=== PATIENT | female | born 1975 | race African-American/Black ===

== ENCOUNTER 2016-04-14 20:43 | Emergency (ER) | payer MEDICAID, OTHER ==
[~2016-04-14] VITALS: Ht 157.5 cm; Wt 124.7 kg
[~2016-04-14 20:43] MED LIST: COLACE100 MG ORAL; NKM; NORCO 5-325 TA1 EACH ORAL; PHENERGAN25 M1 ORAL; PROMETHAZI6.25 MG/2 PO; PROTONIX40 MG ORAL; TRAMADOL HCL50 MG ORAL; VICODIN 5-3001 EACH PO; ZANTAC150 MG ORAL; ZANTAC150 MG PO; ZOFRAN4 M3 ORAL; ZOFRAN4 MG ORAL; [UNRECOGNIZED DRUG - REMARK] PO
[2016-04-14 21:07] VITALS: BP 127/87
[2016-04-14] MEDS ORDERED: Morphine Sulfate 4mg/ml Inj IM ONE (21:45)
[2016-04-14] MEDS ORDERED: DiphenhydrAMINE 50mg/ml Inj IM ONE (21:45)
[2016-04-14 21:52] LABS: BASOPHILS % (AUTO) 0.7 % (0.0-2.0); EOSINOPHILS % (AUTO) 4.6 % (0.0-3.0); LYMPHOCYTES % (AUTO) 31.2 % (20.0-45.0); MEAN CORPUSCULAR HEMOGLOBIN 26.5 PG (27.0-31.0); MEAN CORPUSCULAR HGB CONC 31.7 G/DL (32.0-36.0); MEAN CORPUSCULAR VOLUME 84 FL (80-99); MEAN PLATELET VOLUME 6.4 FL (6.5-10.1); NEUTROPHILS % (AUTO) 58.5 % (45.0-75.0); PLATELET COUNT 332 K/UL (150-450); RED BLOOD COUNT 4.61 M/UL (4.20-5.40); RED CELL DISTRIBUTION WIDTH 14.7 % (11.6-14.8); WHITE BLOOD COUNT 6.9 K/UL (4.8-10.8)
[2016-04-14 22:06] LABS: ALANINE AMINOTRANSFERASE 17 U/L (3-33); ANION GAP 16 (5-15); ASPARTATE AMINO TRANSFERASE 17 U/L (5-40); CALCIUM 9.4 mg/dL (8.6-10.2); CARBON DIOXIDE 26 mEQ/L (20-30); CHLORIDE 97 mEQ/L (98-107); GLOMERULAR FILTRATION RATE > 60 mL/min (>60); HEMOLYSIS 3; LIPASE 21 U/L (< 60); POTASSIUM 3.9 mEQ/L (3.4-4.9); SODIUM 139 mEQ/L (135-145); TOTAL PROTEIN 8.2 g/dL (6.6-8.7)
[2016-04-14] MEDS ORDERED: ZOFRAN ODT4 MG ORAL (22:38)
[2016-04-14 22:44] VITALS: BP 127/87
--- NOTE | 2016-04-14 23:54 | Emergency Room Report ---
History of Present Illness General Chief Complaint: Abdominal Pain Source: Patient Present Illness HPI 40-year-old female presents ED complaining of abdominal pain. States symptoms started 2 days ago. Pain is lower, sharp, 10 out of 10, associated with vaginal bleeding. Patient has history of fibroids. Patient states she is scheduled for OB referral for possible hysterectomy. Patient states she's been here before for the same problem. Patient wants to make sure she doesn't need a blood transfusion. I believe this patient also goes under the name of ALVERTO WELLINGTON. Under this different name patient is also been here several times for similar presentation. No aggravating or relieving factors. Denies any other associated symptoms Allergies: Coded Allergies: ASPIRIN (Verified Allergy, Severe, Anaphylaxis, 07/02/12) KETOROLAC TROMETHAMINE (Verified Allergy, Severe, Anaphylaxis, 07/02/12) SHELLFISH DERIVED (Verified Allergy, Severe, Anaphylaxis, 07/02/12) IBUPROFEN (Verified Allergy, Unknown, 11/11/15) LIDOCAINE (Verified Allergy, Unknown, Itching, 10/30/13) Patient History Past Medical History: GERD Past Surgical History: none Pertinent Family History: none Social History: Denies: alcohol use, drug use, smoking Last Menstrual Period: Jan 2016 Now: No Immunizations: UTD Reviewed Nursing Documentation: PMH: Agreed, PSxH: Agreed Nursing Documentation-PMH Hx Cardiac Problems: No - fibroids Hx Cancer: No Hx Gastrointestinal Problems: Yes - ABD Pain Hx Neurological Problems: No Hx Dizziness: Yes Hx Headaches: Yes Review of Systems All Other Systems: negative except mentioned in HPI Physical Exam Vital Signs Date Time Temp Pulse Resp B/P Pulse Ox O2 Delivery O2 Flow Rate FiO2 04/14/16 20:52 98.8 92 16 127/67 98 Room Air Sp02 EP Interpretation: reviewed, normal General Appearance: obese Head: normocephalic Eyes: bilateral eye PERRL, bilateral eye normal inspection ENT: normal ENT inspection Neck: normal inspection Respiratory: chest non-tender, lungs clear, normal breath sounds, speaking full sentences Cardiovascular #1: regular rate, rhythm, no edema Gastrointestinal: normal bowel sounds, soft, non-distended, no guarding, no rebound, tenderness Rectal: deferred Genitourinary: no CVA tenderness Musculoskeletal: normal inspection Neurologic: alert, oriented x3, responsive, motor strength/tone normal, sensory intact, speech normal Psychiatric: normal inspection Skin: normal inspection Lymphatic: normal inspection Medical Decision Making Diagnostic Impression: Primary Impression: fibroid uterus Additional Impression: Drug-seeking behavior ER Course 40-year-old female presents to ED complaining of lower abdominal pain. States history of fibroids. Differential-anemia, fibroids, chronic pain, gastritis Patient placed on stretcher. After initial history and physical patient stated that she does not want an IV because she is a hard stick. agrees to labs and IM pain medications. Patient states she takes tramadol at home but would like Dilaudid here I stated that patient we will try morphine first Labs - hemoglobin/hematocrit stable, electrolytes okay On reassessment pain is improved. I'm concerned about drug seeking behavior given patient's pain requirements and patient been recently evaluated here under different name. patient also goes by ALVERTO WELLINGTON Patient is requesting pain medications to go home. I explained to the patient that her she has extensive narcotic prescriptions filled recently diagnosis - fibroid uterus, opioid dependence, drug-seeking behavior stable and discharged to home with Rx Zofran. f/u PMD. return to ED if symptoms recur/worsen Labs Test 04/14/16 21:40 White Blood Count 6.9 K/UL (4.8-10.8) Red Blood Count 4.61 M/UL (4.20-5.40) Hemoglobin 12.2 G/DL (12.0-16.0) Hematocrit 38.6 % (37.0-47.0) Mean Corpuscular Volume 84 FL (80-99) Mean Corpuscular Hemoglobin 26.5 PG (27.0-31.0) Mean Corpuscular Hemoglobin Concent 31.7 G/DL (32.0-36.0) Red Cell Distribution Width 14.7 % (11.6-14.8) Platelet Count 332 K/UL (150-450) Mean Platelet Volume 6.4 FL (6.5-10.1) Neutrophils (%) (Auto) 58.5 % (45.0-75.0) Lymphocytes (%) (Auto) 31.2 % (20.0-45.0) Monocytes (%) (Auto) 5.0 % (1.0-10.0) Eosinophils (%) (Auto) 4.6 % (0.0-3.0) Basophils (%) (Auto) 0.7 % (0.0-2.0) Sodium Level 139 mEQ/L (135-145) Potassium Level 3.9 mEQ/L (3.4-4.9) Chloride Level 97 mEQ/L (98-107) Carbon Dioxide Level 26 mEQ/L (20-30) Anion Gap 16 (5-15) Blood Urea Nitrogen 10 mg/dL (7-23) Creatinine 1.0 mg/dL (0.5-0.9) Estimat Glomerular Filtration Rate > 60 mL/min (>60) Glucose Level 99 mg/dL (74-106) Calcium Level 9.4 mg/dL (8.6-10.2) Total Bilirubin < 0.2 mg/dL (0.0-1.2) Aspartate Amino Transf (AST/SGOT) 17 U/L (5-40) Alanine Aminotransferase (ALT/SGPT) 17 U/L (3-33) Alkaline Phosphatase 66 U/L (35-104) Total Protein 8.2 g/dL (6.6-8.7) Albumin 4.1 g/dL (3.5-5.2) Globulin 4.1 g/dL Albumin/Globulin Ratio 1.0 (1.0-2.7) Lipase 21 U/L (< 60) Last Vital Signs Date Time Temp Pulse Resp B/P Pulse Ox O2 Delivery O2 Flow Rate FiO2 04/14/16 22:44 98.8 91 14 127/87 99 Room Air Disposition: HOME, SELF-CARE Condition: Stable Scripts Ondansetron Odt* (ZOFRAN ODT*) 4 Mg Tab.rapdis 4 MG ORAL Q6H Y for Nausea & Vomiting, #30 TAB 0 Refills Prov: LESLIE BEASLEY M.D. 04/14/16 Referrals: [facility],REFERRING (PCP) Patient Instructions: Uterine Fibroids, [id number] LESLIE BEASLEY M.D. Apr 14, 2016 23:54
== END 2016-04-14 22:47 | disposition home or self-care (01) ==
LOC: EMR 21:05
DX: D25.9 Leiomyoma of uterus, unspecified (principal); Z76.5 Malingerer [conscious simulation]; Z88.6 Allergy status to analgesic agent; Z91.013 Allergy to seafood
CPT/HCPCS: 36415; 80053; 83690; 85025; 96372; 99283; J1200; J2270

== ENCOUNTER 2016-06-02 21:13 | Inpatient (IN) | payer OTHER ==
[~2016-06-02] VITALS: Ht 160 cm; Wt 124.7 kg
[~2016-06-02 21:13] MED LIST changes: +ZOFRAN ODT4 MG ORAL
--- NOTE | 2016-06-02 22:09 | Emergency Room Report ---
History of Present Illness General Chief Complaint: Abdominal Pain Source: Patient Present Illness HPI Patient presents complaining of vomiting blood passing blood per rectal and also left lower quadrant pain. She states she passed some bright red blood yesterday but today was darker. The pain is constant 8/10, pressure and burning. Does not radiate towards her back. She was hospitalized in [place] a few weeks ago and received blood transfusions for fibroid bleeding. She denies any fevers chills. She vomited some fresh blood this evening and came in to be evaluated. She takes Protonix and Zantac at home. She denies taking any pain medication at this time. CT abd 11/11/15 IMPRESSION: No evidence of acute abdominopelvic disease, with limitation as described. Subtle but potentially significant abnormalities the gastrointestinal tract may be missed. Repeat CT scan with full oral and IV contrast preparation recommended for more complete evaluation, as clinically indicated Previous cholecystectomy, appendectomy Probable multiple uterine fibroids, at least one degenerated Probable right ovarian physiologic cysts. Ultrasound correlation suggested. Patient denies URI, chest pain. No rashes. No significant depression. Allergies: Coded Allergies: ASPIRIN (Verified Allergy, Severe, Anaphylaxis, 07/02/12) KETOROLAC TROMETHAMINE (Verified Allergy, Severe, Anaphylaxis, 07/02/12) SHELLFISH DERIVED (Verified Allergy, Severe, Anaphylaxis, 07/02/12) CRANBERRY (Verified Allergy, Intermediate, Hives, 06/05/16) and vomiting ONION (Verified Allergy, Intermediate, hives, 06/05/16) vomiting, throat closes up PENICILLINS (Verified Allergy, Intermediate, hives, vomiting, closing of throat, 06/05/16) IBUPROFEN (Verified Allergy, Unknown, 11/11/15) IODINE AND IODIDE CONTAINING PRODUC (Verified Allergy, Unknown, 06/02/16) Patient History Last Menstrual Period: Tubal ligation Now: No Reviewed Nursing Documentation: PMH: Agreed, PSxH: Agreed Nursing Documentation-PMH Hx Cancer: No Hx Gastrointestinal Problems: Yes - ABD Pain Hx Neurological Problems: No Hx Dizziness: Yes Hx Headaches: Yes Physical Exam Vital Signs Date Time Temp Pulse Resp B/P Pulse Ox O2 Delivery O2 Flow Rate FiO2 06/02/16 21:37 98.1 83 16 140/90 100 Room Air Sp02 EP Interpretation: reviewed, normal General Appearance: well appearing, no apparent distress, GCS 15 Head: normocephalic, atraumatic Eyes: bilateral eye PERRL, bilateral eye conjunctivae pale ENT: moist mucus membranes Neck: supple Respiratory: lungs clear, normal breath sounds Cardiovascular #1: regular rate, rhythm Cardiovascular #2: 2+ radial (R) Gastrointestinal: soft, no guarding, no rebound, tenderness - epigastric, other - bloody vomitus - emesis basin full of fresh blood, not clotting Musculoskeletal: back normal, gait/station normal, normal range of motion Neurologic: alert, oriented x3, grossly normal Psychiatric: depressed affect Skin: normal inspection, warm/dry, pallor Procedures Central Line Central Line : Consent: Verbal Central Line Lumen: triple Maximal Sterile Barrier Tech: yes cap, yes mask, yes sterile gown, yes sterile gloves, yes large sterile sheet, yes hand hygiene, yes chlorhexidine prep Central Line Postion: internal jugular (R) Anesthesia: Lidocaine cc's of anesthesia: 2 Complications: none Central Line Post Position: sutured, good blood return, position confirmed w / CXR Attempts: One Patient Tolerated: Well Progress IJ placed with ultrasound guidance Medical Decision Making Diagnostic Impression: Primary Impression: Gastrointestinal bleeding Qualified Codes: K92.2 - Gastrointestinal hemorrhage, unspecified Additional Impression: Possible opeiate seeking behavior ER Course The patient presents with 2 problems part. One is vomiting blood and the second is left lower quadrant pain with passing blood per rectum. The first differential includes gastritis, peptic ulcer disease, esophageal varices, esophagitis amongst others. The second considerations are for diverticulosis, hemorrhoids, diverticulitis amongst others. She had similar pain when she presented October and a CT excluded many significant etiologies. She's never had colonoscopy. The patient will be evaluated with laboratory, EKG and abdominal films. Based on this we may order a CT of the abdomen. The patient will be treated with IV hydration, Protonix, Zofran and also carotid. This is a complex patient and the patient will be admitted to the hospital. No IV sites. CVP begun with ultrasound. Patient requesting more analgesia. H/H good. Still needs observation and continued treatment for GI bleeding. Admit med Dr. Farris. Laboratory Tests Test 06/02/16 22:06 06/02/16 23:00 White Blood Count 7.1 K/UL (4.8-10.8) Red Blood Count 4.25 M/UL (4.20-5.40) Hemoglobin 11.1 G/DL (12.0-16.0) L Hematocrit 36.2 % (37.0-47.0) L Mean Corpuscular Volume 85 FL (80-99) Mean Corpuscular Hemoglobin 26.1 PG (27.0-31.0) L Mean Corpuscular Hemoglobin Concent 30.7 G/DL (32.0-36.0) L Red Cell Distribution Width 17.2 % (11.6-14.8) H Platelet Count 263 K/UL (150-450) Mean Platelet Volume 7.0 FL (6.5-10.1) Neutrophils (%) (Auto) 58.3 % (45.0-75.0) Lymphocytes (%) (Auto) 32.0 % (20.0-45.0) Monocytes (%) (Auto) 5.8 % (1.0-10.0) Eosinophils (%) (Auto) 2.6 % (0.0-3.0) Basophils (%) (Auto) 1.3 % (0.0-2.0) Urine Color Pale yellow Urine Appearance Clear Urine pH 7 (4.5-8.0) Urine Specific [place] 1.010 (1.005-1.035) Urine Protein Negative (NEGATIVE) Urine Glucose (UA) Negative (NEGATIVE) Urine Ketones Negative (NEGATIVE) Urine Occult Blood Negative (NEGATIVE) Urine Nitrite Negative (NEGATIVE) Urine Bilirubin Negative (NEGATIVE) Urine Urobilinogen Normal MG/DL (0.0-1.0) Urine Leukocyte Esterase Negative (NEGATIVE) Urine HCG, Qualitative Negative Sodium Level 141 mEQ/L (135-145) Potassium Level 3.7 mEQ/L (3.4-4.9) Chloride Level 100 mEQ/L (98-107) Carbon Dioxide Level 25 mEQ/L (20-30) Anion Gap 16 (5-15) H Blood Urea Nitrogen 17 mg/dL (7-23) Creatinine 1.0 mg/dL (0.5-0.9) H Estimate Glomerular Filtration Rate > 60 mL/min (>60) Glucose Level 91 mg/dL (74-106) Calcium Level 9.3 mg/dL (8.6-10.2) Total Bilirubin < 0.2 mg/dL (0.0-1.2) Aspartate Amino Transferase (AST) 16 U/L (5-40) Alanine Aminotransferase (ALT) 17 U/L (3-33) Alkaline Phosphatase 64 U/L (35-104) Total Protein 8.3 g/dL (6.6-8.7) Albumin 4.3 g/dL (3.5-5.2) Globulin 4.0 g/dL Albumin/Globulin Ratio 1.0 (1.0-2.7) Lipase 25 U/L (< 60) Prothrombin Time 10.1 SEC (9.30-11.50) Prothrombin Time INR 1.0 (0.9-1.1) PTT 20 SEC (23-33) L EKG Diagnostic Results Rate: normal Rhythm: NSR ST Segments: no acute changes Rhythm Strip Diag. Results EP Interpretation: yes Rhythm: NSR, no PVC's, no ectopy Chest X-Ray Diagnostic Results EP Interpretation: Yes Findings: no consolidation, no effusion, no pneumothorax, other - CVP in RA Number of Views: 1 Last Vital Signs Date Time Temp Pulse Resp B/P Pulse Ox O2 Delivery O2 Flow Rate FiO2 06/03/16 09:07 97.3 80 20 125/79 99 Room Air Status: improved Disposition: ADMITTED INPATIENT Condition: Serious Don Zambrano M.D. Jun 02, 2016 22:09
[2016-06-02] MEDS ORDERED: Pantoprazole Inj IVP ONE (22:15)
[2016-06-02] MEDS ORDERED: HYDROmorphone 1mg/ml Carpuject IVP ONE (22:15)
[2016-06-02 22:43] LABS: BASOPHILS % (AUTO) 1.3 % (0.0-2.0); EOSINOPHILS % (AUTO) 2.6 % (0.0-3.0); MEAN CORPUSCULAR HEMOGLOBIN 26.1 PG (27.0-31.0); MEAN CORPUSCULAR HGB CONC 30.7 G/DL (32.0-36.0); MEAN CORPUSCULAR VOLUME 85 FL (80-99); MONOCYTES % (AUTO) 5.8 % (1.0-10.0); NEUTROPHILS % (AUTO) 58.3 % (45.0-75.0); PLATELET COUNT 263 K/UL (150-450); RED BLOOD COUNT 4.25 M/UL (4.20-5.40); RED CELL DISTRIBUTION WIDTH 17.2 % (11.6-14.8); WHITE BLOOD COUNT 7.1 K/UL (4.8-10.8)
[2016-06-02 22:46] LABS: APPEARANCE,URINE CLEAR; KETONES,URINE NEGATIVE (NEGATIVE); LEUKOCYTE ESTERASE ,URINE NEGATIVE (NEGATIVE); NITRITE,URINE NEGATIVE (NEGATIVE); PH,URINE 7 (4.5-8.0); PROTEIN,URINE NEGATIVE (NEGATIVE); UROBILINOGEN,URINE NORMAL MG/DL (0.0-1.0)
[2016-06-02 23:00] LABS: ALANINE AMINOTRANSFERASE 17 U/L (3-33); ANION GAP 16 (5-15); ASPARTATE AMINO TRANSFERASE 16 U/L (5-40); CALCIUM 9.3 mg/dL (8.6-10.2); CARBON DIOXIDE 25 mEQ/L (20-30); CHLORIDE 100 mEQ/L (98-107); GLOMERULAR FILTRATION RATE > 60 mL/min (>60); HEMOLYSIS 28; LIPASE 25 U/L (< 60); POTASSIUM 3.7 mEQ/L (3.4-4.9); SODIUM 141 mEQ/L (135-145); TOTAL PROTEIN 8.3 g/dL (6.6-8.7)
[2016-06-02 23:15] VITALS: BP 142/78
[2016-06-02] MEDS ORDERED: Lidocaine 1% Plain 30 ml INJ ONE (23:15)
[2016-06-02 23:27] LABS: PROTHROMBIN TIME 10.1 SEC (9.30-11.50)
[2016-06-03] MEDS ORDERED: DiphenhydrAMINE 50mg/ml Inj IVP ONE
[2016-06-03] MEDS ORDERED: HYDROmorphone 1mg/ml Carpuject IVP ONE (00:45)
[2016-06-03 01:15] VITALS: BP 146/81
[2016-06-03] MEDS ORDERED: Hydromorphone 0.5mg/0.5ml inj IVP ONE (02:00)
[2016-06-03 02:50] VITALS: BP 148/80
[2016-06-03 04:00] VITALS: BP 130/59
[2016-06-03] MEDS ORDERED: Miralax 17gm pkt ORAL PRN (07:30)
[2016-06-03] MEDS ORDERED: Morphine Sulfate 2mg/ml Inj IVP PRN (07:30)
[2016-06-03] MEDS ORDERED: Mylanta II UD 30ml ORAL PRN (07:30)
[2016-06-03] MEDS ORDERED: Nitroglycerin Subl 0.4mg tab (Bottle Of 25) SL PRN (07:30)
[2016-06-03] MEDS: D5 1/2NS 1,000 ML IV SCH ×2 (08:17→19:39)
[2016-06-03 09:07] VITALS: BP 125/79
--- NOTE | 2016-06-03 11:43 | Diagnostic Imaging Report ---
Indication: Chest Pain Comparison: None A single view chest radiograph was obtained. Findings: Cardiomediastinal appearance is within normal limits for age. Right central line is in good position. The tip is in the right atrium. There is no pneumothorax. Pulmonary vascularity is appropriate. The diaphragmatic contour is smooth and costophrenic angles are sharp. No pleural effusions are identified. The bones are unremarkable. Impression: Central line in good position. No complications.
--- NOTE | 2016-06-03 11:43 | Diagnostic Imaging Report ---
Indication: Abdominal pain Comparison: None Single view of the abdomen obtained Findings: Bowel gas pattern is nonspecific. No mass, ectopic calcifications, or abnormal gas collections are identified. The bones are unremarkable. Cholecystectomy clips noted in the right upper quadrant as well as surgical clips in the right lower quadrant/hemipelvis. The study is limited by body habitus. Impression: No acute findings
[2016-06-03] MEDS ORDERED: Pantoprazole Inj IVP SCH (12:45)
[2016-06-03] MEDS: Pantoprazole Inj IVP SCH ×2 (13:31→19:39)
--- NOTE | 2016-06-03 15:07 | History and Physical ---
History of Present Illness General Date patient seen: Jun 03, 2016 Time patient seen: 13:00 Reason for Hospitalization: Abdominal Pain Present Illness HPI Patient presented complaining of vomiting blood Also passed blood per rectal , dark red/brown also c/o left lower quadrant pain. She stated she passed bright red blood yesterday but today was darker. Pain is constant 8/10, pressure like and burning. No radiation to the back She was hospitalized in [place] few weeks ago and received blood transfusions for fibroid bleeding. She denied any fevers chills. She takes Protonix and Zantac at home. She denied taking any pain medication at this time CT A/P in ED revealed no acute abdominopelvic pathology, but was c/w fibroids and R side ovarian cysts laboratory workup in ED unremarkable except mild anemia Per patient strong family history of cancer: father with colorectal Ca and mother with ovarian Ca Allergies: Coded Allergies: ASPIRIN (Verified Allergy, Severe, Anaphylaxis, 07/02/12) KETOROLAC TROMETHAMINE (Verified Allergy, Severe, Anaphylaxis, 07/02/12) SHELLFISH DERIVED (Verified Allergy, Severe, Anaphylaxis, 07/02/12) IBUPROFEN (Verified Allergy, Unknown, 11/11/15) IODINE AND IODIDE CONTAINING PRODUC (Verified Allergy, Unknown, 06/02/16) LIDOCAINE (Verified Allergy, Unknown, Itching, 10/30/13) Medication History Scheduled Pantoprazole* (Protonix*), 40 MG ORAL DAILY, (Reported) Ranitidine Hcl* (Zantac*), 150 MG ORAL DAILY, (Reported) [Iron Pill], 1 TAB PO DAILY, (Reported) Scheduled PRN Ondansetron (Zofran), 4 MG ORAL Q6H PRN for Nausea & Vomiting Ondansetron Odt* (Zofran Odt*), 4 MG ORAL Q6H PRN for Nausea & Vomiting Ondansetron* (Zofran*), 4 MG ORAL QID PRN for Nausea & Vomiting, (Reported) Tramadol Hcl* (Ultram*), 50 MG ORAL BID PRN for For Pain, (Reported) Patient History Healthcare decision maker no Resuscitation status Advanced Directive on File Review of Systems Constitutional: Reports: weakness Eye: Reports: no symptoms ENT: Reports: no symptoms Respiratory: Reports: no symptoms Cardiovascular: Reports: no symptoms Gastrointestinal: Reports: see HPI Genitourinary: Reports: other - fibroids, ovarian cysts Musculoskeletal: Reports: no symptoms Skin: Reports: no symptoms Psychiatric: Reports: no symptoms Neurological: Reports: no symptoms Endocrine: Reports: no symptoms Hematologic/Lymphatic: Reports: anemia Physical Exam General Appearance: WD/WN, alert, morbidly obese Lines, tubes and drains: peripheral HEENT: normocephalic, atraumatic, anicteric, mucous membranes moist, PERRL Neck: non-tender, supple Respiratory/Chest: lungs clear Cardiovascular/Chest: normal peripheral pulses, normal rate, regular rhythm, no JVD Abdomen: normal bowel sounds, non tender - obese, soft Extremities: normal range of motion, no calf tenderness, normal capillary refill Skin Exam: warm/dry Neurologic: golf ball inspector II-XII grossly normal, no motor/sensory deficits, alert, oriented x 3, responsive, normal mood/affect Musculoskeletal: normal muscle bulk Last 24 Hour Vital Signs Date Time Temp Pulse Resp B/P Pulse Ox O2 Delivery O2 Flow Rate FiO2 06/03/16 11:03 97.3 06/03/16 09:07 97.3 80 20 125/79 99 Room Air 06/03/16 08:46 97.3 06/03/16 04:00 97.0 75 18 130/59 100 Room Air 06/03/16 02:50 98.3 89 21 148/80 100 Room Air 06/03/16 02:50 98.3 89 21 148/80 100 Room Air 06/03/16 01:15 98.3 91 20 146/81 100 Room Air 06/03/16 00:09 98.3 06/03/16 00:09 98.3 06/03/16 00:09 98.3 06/02/16 23:15 98.1 87 12 142/78 100 Room Air 06/02/16 21:37 98.1 83 16 140/90 100 Room Air Intake and Output 06/02/16 06/03/16 19:00 07:00 Intake Total 1000 ml Balance 1000 ml Intake IV Total 1000 ml # Voids 3 # Bowel Movements 4 Laboratory Tests Test 06/02/16 22:06 06/02/16 23:00 White Blood Count 7.1 K/UL (4.8-10.8) Red Blood Count 4.25 M/UL (4.20-5.40) Hemoglobin 11.1 G/DL (12.0-16.0) L Hematocrit 36.2 % (37.0-47.0) L Mean Corpuscular Volume 85 FL (80-99) Mean Corpuscular Hemoglobin 26.1 PG (27.0-31.0) L Mean Corpuscular Hemoglobin Concent 30.7 G/DL (32.0-36.0) L Red Cell Distribution Width 17.2 % (11.6-14.8) H Platelet Count 263 K/UL (150-450) Mean Platelet Volume 7.0 FL (6.5-10.1) Neutrophils (%) (Auto) 58.3 % (45.0-75.0) Lymphocytes (%) (Auto) 32.0 % (20.0-45.0) Monocytes (%) (Auto) 5.8 % (1.0-10.0) Eosinophils (%) (Auto) 2.6 % (0.0-3.0) Basophils (%) (Auto) 1.3 % (0.0-2.0) Urine Color Pale yellow Urine Appearance Clear Urine pH 7 (4.5-8.0) Urine Specific [place] 1.010 (1.005-1.035) Urine Protein Negative (NEGATIVE) Urine Glucose (UA) Negative (NEGATIVE) Urine Ketones Negative (NEGATIVE) Urine Occult Blood Negative (NEGATIVE) Urine Nitrite Negative (NEGATIVE) Urine Bilirubin Negative (NEGATIVE) Urine Urobilinogen Normal MG/DL (0.0-1.0) Urine Leukocyte Esterase Negative (NEGATIVE) Urine HCG, Qualitative Negative Sodium Level 141 mEQ/L (135-145) Potassium Level 3.7 mEQ/L (3.4-4.9) Chloride Level 100 mEQ/L (98-107) Carbon Dioxide Level 25 mEQ/L (20-30) Anion Gap 16 (5-15) H Blood Urea Nitrogen 17 mg/dL (7-23) Creatinine 1.0 mg/dL (0.5-0.9) H Estimat Glomerular Filtration Rate > 60 mL/min (>60) Glucose Level 91 mg/dL (74-106) Calcium Level 9.3 mg/dL (8.6-10.2) Total Bilirubin < 0.2 mg/dL (0.0-1.2) Aspartate Amino Transf (AST/SGOT) 16 U/L (5-40) Alanine Aminotransferase (ALT/SGPT) 17 U/L (3-33) Alkaline Phosphatase 64 U/L (35-104) Total Protein 8.3 g/dL (6.6-8.7) Albumin 4.3 g/dL (3.5-5.2) Globulin 4.0 g/dL Albumin/Globulin Ratio 1.0 (1.0-2.7) Lipase 25 U/L (< 60) Prothrombin Time 10.1 SEC (9.30-11.50) Prothromb Time International Ratio 1.0 (0.9-1.1) Activated Partial Thromboplast Time 20 SEC (23-33) L Height (Feet): 5 Height (Inches): 3.00 Weight (Pounds): 275 Medications Current Medications Medications (Trade) Dose Ordered Sig/Malcolm Route PRN Reason Start Time Stop Time Status Last Admin Dose Admin Acetaminophen (Tylenol) 650 mg Q4H PRN ORAL fever 06/03/16 07:30 07/03/16 07:29 Al Hydroxide/Mg Hydroxide (Mylanta II) 30 ml Q6H PRN ORAL dyspepsia 06/03/16 07:30 07/03/16 07:29 Dextrose (Dextrose 50%) STAT PRN IV Hypoglycemia 06/03/16 07:30 07/03/16 07:29 Dextrose/Sodium Chloride (D5 0.45% NS) 1,000 ml @ 75 mls/hr [id number] IV 06/03/16 08:00 07/03/16 07:59 06/03/16 08:17 Diphenhydramine HCl (Benadryl) 25 mg Q6H PRN ORAL Itching/Pruritis 06/03/16 07:30 07/03/16 07:29 Hydromorphone HCl (Dilaudid) 2 mg Q3H PRN IVP Severe Pain (Pain Scale 7-10) 06/03/16 10:15 06/10/16 10:14 06/03/16 13:34 Nitroglycerin (Ntg) 0.4 mg Q5M X 3 DOSES PRN SL Prn Chest Pain 06/03/16 07:30 07/03/16 07:29 Ondansetron HCl (Zofran) 4 mg Q6H PRN IVP Nausea & Vomiting 06/03/16 07:30 07/03/16 07:29 06/03/16 08:15 Pantoprazole (Protonix) 40 mg EVERY 12 HOURS IVP 06/03/16 13:30 07/03/16 13:29 06/03/16 13:31 Polyethylene Glycol (Miralax) 17 gm HSPRN PRN ORAL Constipation 06/03/16 07:30 07/03/16 07:29 Temazepam (Restoril) 15 mg HSPRN PRN ORAL Insomnia 06/03/16 07:30 06/10/16 07:29 Assessment/Plan Assessment/Plan ASSESSMENT GI bleeding family hx of Ca fibroids ovarian cysts diverticulosis with hx of diverticulitis morbid obesity PLAN OF CARE MS floor IVF CL diet as tolerated GI consult monitor HH, transfuse prn stool OB x 2 PPI a/emetic prn Venous Duplex BLE pelvic US to eval for ovarian cysts check CEA CA125 case discussed and evaluated by supervising physician Smith (Jenniferkillian),Nancy NIELSEN Jun 03, 2016 15:07
[2016-06-03 18:04] VITALS: BP 117/79
--- NOTE | 2016-06-03 20:38 | Consultation ---
DATE OF CONSULTATION: 06/03/2016 GASTROENTEROLOGY CONSULTATION CHIEF COMPLAINT: GI bleeding. HISTORY OF PRESENT ILLNESS: This is a 40-year-old female, known to me from about a year ago in October when she was admitted to the hospital with the same symptoms of GI bleeding. The patient had endoscopy and colonoscopy. Endoscopy was incomplete because the patient had food in the stomach that showed evidence of H. pylori negative gastritis. No obvious bleeding. Colonoscopy was also done, which was also poor prep, but there was no obvious bleeding except for it showed hemorrhoids. The patient also has evidence for vaginal bleeding from her fibroid tumors. The patient is readmitted again with the same symptoms of coffee-ground emesis and rectal bleeding. Of note, the patient's hemoglobin at the time of discharge in October 2015 was 9.7 and today it is over 11. PAST MEDICAL HISTORY: 1. Gastritis. 2. Anemia. 3. Hemorrhoids. 4. Ovarian cyst. 5. Fibroids. PAST SURGICAL HISTORY: Cholecystectomy and appendectomy. MEDICATIONS: Please see medication reconciliation list. ALLERGIES: Aspirin, ibuprofen, iodine, ketorolac, lidocaine, and shellfish. SOCIAL HISTORY: There is no recent use of tobacco, alcohol, or drug abuse. FAMILY HISTORY: Noncontributory. REVIEW OF SYSTEMS: A 10-point review of systems of about pertinent positives in history of present illness. PHYSICAL EXAMINATION: VITAL SIGNS: Temperature 97 degrees, pulse is 70, respirations 18, and blood pressure 130/59. HEENT: Normocephalic and atraumatic. Sclerae anicteric. NECK: Supple. No lymphadenopathy. CARDIOVASCULAR: Regular rhythm. Plus S1 and S2. No obvious murmur. LUNGS: Clear to auscultation bilaterally. ABDOMEN: Positive bowel sounds. Soft and tender to palpation in the epigastric area. No rebound. No guarding. No peritoneal sign. EXTREMITIES: No cyanosis. No clubbing. No edema. LABORATORY AND DIAGNOSTIC DATA: White count 7.1, hemoglobin 11, hematocrit 33, and platelet count is 263,000. ASSESSMENT AND PLAN: The patient is a 40-year-old female with recurrent complaint of bleeding, but honestly I am not sure if the patient is actually bleeding because that is the second time she has been scoped, one was in 2013, then in 2015. Endoscopy both times was negative for upper gastrointestinal bleeding. Hemoglobin today is better than at the time of discharge in October 2015. The patient has incomplete colonoscopy due to poor prep last time. So I do not know if he is going to be compliant at this time. Plan is to monitor hemoglobin and hematocrit and transfuse as needed. Start the patient on Protonix. Send the stool for occult blood. At this time, we will start the patient on clear liquid diet. Consider gastrointestinal procedures if there is evidence of obvious bleeding. Fernando Gaitan M.D. DR: CHRISTINE JOB#: [id number] CC:
[2016-06-03 21:18] VITALS: BP 106/57
[2016-06-04] VITALS: BP 153/74
[2016-06-04 08:00] VITALS: BP 121/58
--- NOTE | 2016-06-04 08:50 | General Progress Note ---
Assessment/Plan Problem List: (1) Gastrointestinal bleeding ICD Codes: K92.2 - Gastrointestinal hemorrhage, unspecified SNOMED: 72690835 (2) Opioid dependence ICD Codes: F11.20 - Opioid dependence, uncomplicated SNOMED: 59058161 (3) GERD (gastroesophageal reflux disease) ICD Codes: K21.9 - GERD (gastroesophageal reflux disease) SNOMED: 849317383 (4) fibroid uterus (5) Abdominal pain ICD Codes: R10.9 - Unspecified abdominal pain SNOMED: 82055236 Assessment/Plan plan esophagogastroduodenoscopy and colonoscopy tomorrow Subjective ROS Limited/Unobtainable: Yes Allergies: Coded Allergies: ASPIRIN (Verified Allergy, Severe, Anaphylaxis, 07/02/12) KETOROLAC TROMETHAMINE (Verified Allergy, Severe, Anaphylaxis, 07/02/12) SHELLFISH DERIVED (Verified Allergy, Severe, Anaphylaxis, 07/02/12) IBUPROFEN (Verified Allergy, Unknown, 11/11/15) IODINE AND IODIDE CONTAINING PRODUC (Verified Allergy, Unknown, 06/02/16) LIDOCAINE (Verified Allergy, Unknown, Itching, 10/30/13) Subjective c/o abd pain Objective Last 24 Hour Vital Signs Date Time Temp Pulse Resp B/P Pulse Ox O2 Delivery O2 Flow Rate FiO2 06/04/16 02:08 97.2 06/04/16 00:00 97.9 72 20 153/74 100 Room Air 06/03/16 21:18 20 106/57 97 Room Air 06/03/16 20:00 97.9 76 06/03/16 18:04 97.2 74 20 117/79 97 Room Air 06/03/16 09:07 97.3 80 20 125/79 99 Room Air Intake and Output 06/03/16 06/04/16 19:00 07:00 Intake Total 375 ml 990 ml Balance 375 ml 990 ml Intake Oral 240 ml IV Total 375 ml 750 ml # Voids 3 4 # Bowel Movements 1 Laboratory Tests 06/03/16 13:00: Stool Occult Blood Positive Height (Feet): 5 Height (Inches): 3.00 Weight (Pounds): 275 General Appearance: alert EENT: normal ENT inspection Neck: supple Cardiovascular: normal rate Respiratory/Chest: lungs clear Abdomen: normal bowel sounds, non tender, soft Extremities: non-tender LILIAM QUARLES Jun 04, 2016 08:50
[2016-06-04] MEDS ORDERED: Bisacodyl EC 5mg tab ORAL ONE (09:00)
[2016-06-04] MEDS: LORazepam 1mg tab ORAL PRN (09:29)
[2016-06-04] MEDS: Pantoprazole Inj IVP SCH ×2 (09:30→20:41)
[2016-06-04] MEDS: D5 1/2NS 1,000 ML IV SCH (09:42)
[2016-06-04 12:00] VITALS: BP 144/74
[2016-06-04 13:41] LABS: BASOPHILS % (AUTO) 0.6 % (0.0-2.0); EOSINOPHILS % (AUTO) 2.9 % (0.0-3.0); LYMPHOCYTES % (AUTO) 22.9 % (20.0-45.0); MEAN CORPUSCULAR HEMOGLOBIN 25.8 PG (27.0-31.0); MEAN CORPUSCULAR HGB CONC 30.7 G/DL (32.0-36.0); MEAN CORPUSCULAR VOLUME 84 FL (80-99); MEAN PLATELET VOLUME 6.5 FL (6.5-10.1); MONOCYTES % (AUTO) 7.4 % (1.0-10.0); NEUTROPHILS % (AUTO) 66.2 % (45.0-75.0); PLATELET COUNT 281 K/UL (150-450); RED BLOOD COUNT 3.96 M/UL (4.20-5.40); RED CELL DISTRIBUTION WIDTH 17.6 % (11.6-14.8); WHITE BLOOD COUNT 6.7 K/UL (4.8-10.8)
[2016-06-04 13:52] LABS: PROTHROMBIN TIME 10.2 SEC (9.30-11.50)
--- NOTE | 2016-06-04 14:01 | Pulmonology Progress Note ---
Assessment/Plan Assessment/Plan ASSESSMENT GI bleeding family hx of Ca uterine fibroids ovarian cysts diverticulosis with hx of diverticulitis abdominal pain morbid obesity ? opioid dependency PLAN OF CARE MS floor IVF CL diet as tolerated GI follows monitor HH, transfuse prn stool OB x 2, ( 1 collected, positive) PPI a/emetic prn Venous Duplex BLE pelvic US to eval for ovarian cysts check CEA CA 125 pending EGD and colon in am case discussed and evaluated by supervising physician Subjective Allergies: Coded Allergies: ASPIRIN (Verified Allergy, Severe, Anaphylaxis, 07/02/12) KETOROLAC TROMETHAMINE (Verified Allergy, Severe, Anaphylaxis, 07/02/12) SHELLFISH DERIVED (Verified Allergy, Severe, Anaphylaxis, 07/02/12) IBUPROFEN (Verified Allergy, Unknown, 11/11/15) IODINE AND IODIDE CONTAINING PRODUC (Verified Allergy, Unknown, 06/02/16) LIDOCAINE (Verified Allergy, Unknown, Itching, 10/30/13) Subjective HH trending down reported 1 episode of hematemesis GI seen and evaluated Objective Last 24 Hour Vital Signs Date Time Temp Pulse Resp B/P Pulse Ox O2 Delivery O2 Flow Rate FiO2 06/04/16 12:00 97.2 78 20 144/74 98 Room Air 06/04/16 11:43 97.2 06/04/16 08:00 97.7 74 20 121/58 99 Room Air 06/04/16 00:00 97.9 72 20 153/74 100 Room Air 06/03/16 21:18 20 106/57 97 Room Air 06/03/16 20:00 97.9 76 06/03/16 18:04 97.2 74 20 117/79 97 Room Air Intake and Output 06/03/16 06/04/16 19:00 07:00 Intake Total 375 ml 990 ml Balance 375 ml 990 ml Intake Oral 240 ml IV Total 375 ml 750 ml # Voids 3 4 # Bowel Movements 1 Objective General Appearance: WD/WN, alert, morbidly obese Lines, tubes and drains: peripheral HEENT: normocephalic, atraumatic, anicteric, mucous membranes moist, PERRL Neck: non-tender, supple Respiratory/Chest: lungs clear Cardiovascular/Chest: normal peripheral pulses, normal rate, regular rhythm, no JVD Abdomen: normal bowel sounds, non tender - obese, soft Extremities: normal range of motion, no calf tenderness, normal capillary refill Skin Exam: warm/dry 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 normal, no motor/sensory deficits, alert, oriented x 3, responsive, normal mood/affect Musculoskeletal: normal muscle bulk Laboratory Tests 06/04/16 13:10: White Blood Count 6.7, Red Blood Count 3.96L, Hemoglobin 10.2L, Hematocrit 33.3L , Mean Corpuscular Volume 84, Mean Corpuscular Hemoglobin 25.8L, Mean Corpuscular Hemoglobin Concent 30.7L, Red Cell Distribution Width 17.6H, Platelet Count 281, Mean Platelet Volume 6.5, Neutrophils (%) (Auto) 66.2, Lymphocytes (%) (Auto) 22.9, Monocytes (%) (Auto) 7.4, Eosinophils (%) (Auto) 2.9, Basophils (%) (Auto) 0.6, Prothrombin Time 10.2, Prothromb Time International Ratio 1.0, Activated Partial Thromboplast Time 25, Sodium Level [ Pending], Potassium Level [Pending], Chloride Level [Pending], Carbon Dioxide Level [Pending], Blood Urea Nitrogen [Pending], Creatinine [Pending], Estimat Glomerular Filtration Rate [Pending], Glucose Level [Pending], Calcium Level [ Pending], Total Bilirubin [Pending], Aspartate Amino Transf (AST/SGOT) [Pending] , Alanine Aminotransferase (ALT/SGPT) [Pending], Alkaline Phosphatase [Pending] , Total Protein [Pending], Albumin [Pending], Globulin [Pending], Amylase Level [Pending], Lipase [Pending], Carcinoembryonic Antigen [Pending], CA 125 Antigen [Pending] Current Medications Medications (Trade) Dose Ordered Sig/Malcolm Route PRN Reason Start Time Stop Time Status Last Admin Dose Admin Acetaminophen (Tylenol) 650 mg Q4H PRN ORAL fever 06/03/16 07:30 07/03/16 07:29 Al Hydroxide/Mg Hydroxide (Mylanta II) 30 ml Q6H PRN ORAL dyspepsia 06/03/16 07:30 07/03/16 07:29 Dextrose (Dextrose 50%) STAT PRN IV Hypoglycemia 06/03/16 07:30 07/03/16 07:29 Dextrose/Sodium Chloride (D5 0.45% NS) 1,000 ml @ 75 mls/hr [id number] IV 06/03/16 08:00 07/03/16 07:59 06/04/16 09:42 Diphenhydramine HCl (Benadryl) 25 mg Q6H PRN ORAL Itching/Pruritis 06/03/16 07:30 07/03/16 07:29 Hydromorphone HCl (Dilaudid) 2 mg Q3H PRN IVP Severe Pain (Pain Scale 7-10) 06/03/16 10:15 06/10/16 10:14 06/04/16 11:13 Lorazepam (Ativan) 1 mg Q6H PRN ORAL For Anxiety 06/04/16 09:15 06/11/16 09:14 06/04/16 09:29 Nitroglycerin (Ntg) 0.4 mg Q5M X 3 DOSES PRN SL Prn Chest Pain 06/03/16 07:30 07/03/16 07:29 Ondansetron HCl (Zofran) 4 mg Q6H PRN IVP Nausea & Vomiting 06/03/16 07:30 07/03/16 07:29 06/04/16 11:13 Pantoprazole (Protonix) 40 mg EVERY 12 HOURS IVP 06/03/16 13:30 07/03/16 13:29 06/04/16 09:30 Polyethylene Glycol (Miralax) 17 gm HSPRN PRN ORAL Constipation 06/03/16 07:30 07/03/16 07:29 Polyethylene Glycol/ Electrolytes (Nulytely) 4,000 ml ONCE ONCE ORAL 06/04/16 15:00 06/04/16 15:01 Temazepam (Restoril) 15 mg HSPRN PRN ORAL Insomnia 06/03/16 07:30 06/10/16 07:29 06/04/16 03:00 [facility] Marc NP Jun 04, 2016 14:01
[2016-06-04 14:04] LABS: ALANINE AMINOTRANSFERASE 14 U/L (3-33); ALBUMIN/GLOBULIN RATIO 1.1 (1.0-2.7); AMYLASE 80 U/L (10-110); ANION GAP 15 (5-15); ASPARTATE AMINO TRANSFERASE 17 U/L (5-40); CALCIUM 8.8 mg/dL (8.6-10.2); CARBON DIOXIDE 24 mEQ/L (20-30); CHLORIDE 98 mEQ/L (98-107); CREATININE 0.8 mg/dL (0.5-0.9); GLOMERULAR FILTRATION RATE > 60 mL/min (>60); HEMOLYSIS 1; LIPASE 45 U/L (< 60); POTASSIUM 3.8 mEQ/L (3.4-4.9); SODIUM 137 mEQ/L (135-145); TOTAL PROTEIN 7.3 g/dL (6.6-8.7)
[2016-06-04] MEDS ORDERED: Nulytely 4L ORAL ONE (15:00)
[2016-06-05] VITALS (9 sets, daily range): BP systolic 132–151; BP diastolic 68–92
[2016-06-05] MEDS: D5 1/2NS 1,000 ML IV SCH ×2 (00:24→13:41)
[2016-06-05 08:08] LABS: BASOPHILS % (AUTO) 0.8 % (0.0-2.0); EOSINOPHILS % (AUTO) 3.6 % (0.0-3.0); LYMPHOCYTES % (AUTO) 38.1 % (20.0-45.0); MEAN CORPUSCULAR HEMOGLOBIN 26.4 PG (27.0-31.0); MEAN CORPUSCULAR HGB CONC 31.7 G/DL (32.0-36.0); MEAN CORPUSCULAR VOLUME 83 FL (80-99); MEAN PLATELET VOLUME 6.5 FL (6.5-10.1); MONOCYTES % (AUTO) 7.2 % (1.0-10.0); NEUTROPHILS % (AUTO) 50.3 % (45.0-75.0); PLATELET COUNT 245 K/UL (150-450); RED BLOOD COUNT 3.79 M/UL (4.20-5.40); RED CELL DISTRIBUTION WIDTH 16.9 % (11.6-14.8); WHITE BLOOD COUNT 4.7 K/UL (4.8-10.8)
[2016-06-05 08:30] LABS: ALANINE AMINOTRANSFERASE 13 U/L (3-33); ALBUMIN/GLOBULIN RATIO 1.2 (1.0-2.7); ANION GAP 13 (5-15); ASPARTATE AMINO TRANSFERASE 15 U/L (5-40); CALCIUM 8.7 mg/dL (8.6-10.2); CARBON DIOXIDE 27 mEQ/L (20-30); CHLORIDE 102 mEQ/L (98-107); CREATININE 0.7 mg/dL (0.5-0.9); GLOMERULAR FILTRATION RATE > 60 mL/min (>60); HEMOLYSIS 3; POTASSIUM 3.8 mEQ/L (3.4-4.9); SODIUM 142 mEQ/L (135-145); TOTAL PROTEIN 6.7 g/dL (6.6-8.7)
[2016-06-05] MEDS: Pantoprazole Inj IVP SCH ×2 (09:09→20:00)
--- NOTE | 2016-06-05 10:49 | Anethesia Preoperative Eval ---
Anesthesia Pre-op PMH/ROS General Date of Evaluation: Jun 05, 2016 Anesthesiologist: Satnam ASA Score: ASA 2 Mallampati Score Class I : Soft palate, uvula, fauces, pillars visible Class II: Soft palate, uvula, fauces visible Class III: Soft palate, base of uvula visible Class IV: Only hard plate visible Mallampati Classification: Class III Surgeon: Lyly Diagnosis: GI bleed Surgical Procedure: EGd and colon Anesthesia History: none Family History: no anesthesia problems Allergies: Coded Allergies: ASPIRIN (Verified Allergy, Severe, Anaphylaxis, 07/02/12) KETOROLAC TROMETHAMINE (Verified Allergy, Severe, Anaphylaxis, 07/02/12) SHELLFISH DERIVED (Verified Allergy, Severe, Anaphylaxis, 07/02/12) IBUPROFEN (Verified Allergy, Unknown, 11/11/15) IODINE AND IODIDE CONTAINING PRODUC (Verified Allergy, Unknown, 06/02/16) LIDOCAINE (Verified Allergy, Unknown, Itching, 10/30/13) Medications: see eMAR Past Medical History Cardiovascular: Denies: CAD, HTN, VT, arrhythmia, other, valve dz Pulmonary: Denies: COPD, MONA, asthma, other Gastrointestinal/Genitourinary: Reports: GERD, other - diverticulosis, Denies: CRI, ESRD Neurologic/Psychiatric: Denies: CVA, TIA, dementia, depression/anxiety, other Endocrine: Denies: DM, hypothyroidism, other, steroids HEENT: Denies: [place] (L), [place] (R), cataract (L), cataract (R), glaucoma, other Hematology/Immune: Reports: anemia, Denies: DVT, bleeding disorder, other Musculoskeletal/Integumentary: Denies: DDD, DJD, OA, RA, edema, other Other: obesity - morbid PSxH Narrative: lap appy, lap ramila, btl Anesthesia Pre-op Phys. Exam Physician Exam Last Vital Signs Date Time Temp Pulse Resp B/P Pulse Ox O2 Delivery O2 Flow Rate FiO2 06/05/16 07:49 97.2 06/04/16 12:00 78 20 144/74 98 Room Air Constitutional: NAD Cardiovascular: RRR Respiratory: CTA Airway Exam Mallampati Score: Class III MO: limited Neck: obese ROM: limited Anesthesia Pre-op A/P Labs Hematology Test 06/04/16 13:10 06/05/16 06:00 White Blood Count 6.7 K/UL (4.8-10.8) 4.7 K/UL (4.8-10.8) L Red Blood Count 3.96 M/UL (4.20-5.40) L 3.79 M/UL (4.20-5.40) L Hemoglobin 10.2 G/DL (12.0-16.0) L 10.0 G/DL (12.0-16.0) L Hematocrit 33.3 % (37.0-47.0) L 31.6 % (37.0-47.0) L Mean Corpuscular Volume 84 FL (80-99) 83 FL (80-99) Mean Corpuscular Hemoglobin 25.8 PG (27.0-31.0) L 26.4 PG (27.0-31.0) L Mean Corpuscular Hemoglobin Concent 30.7 G/DL (32.0-36.0) L 31.7 G/DL (32.0-36.0) L Red Cell Distribution Width 17.6 % (11.6-14.8) H 16.9 % (11.6-14.8) H Platelet Count 281 K/UL (150-450) 245 K/UL (150-450) Mean Platelet Volume 6.5 FL (6.5-10.1) 6.5 FL (6.5-10.1) Neutrophils (%) (Auto) 66.2 % (45.0-75.0) 50.3 % (45.0-75.0) Lymphocytes (%) (Auto) 22.9 % (20.0-45.0) 38.1 % (20.0-45.0) Monocytes (%) (Auto) 7.4 % (1.0-10.0) 7.2 % (1.0-10.0) Eosinophils (%) (Auto) 2.9 % (0.0-3.0) 3.6 % (0.0-3.0) H Basophils (%) (Auto) 0.6 % (0.0-2.0) 0.8 % (0.0-2.0) Coagulation Test 06/04/16 13:10 Prothrombin Time 10.2 SEC (9.30-11.50) Prothromb Time International Ratio 1.0 (0.9-1.1) Activated Partial Thromboplast Time 25 SEC (23-33) Chemistry Test 06/04/16 13:10 06/05/16 06:00 Sodium Level 137 mEQ/L (135-145) 142 mEQ/L (135-145) Potassium Level 3.8 mEQ/L (3.4-4.9) 3.8 mEQ/L (3.4-4.9) Chloride Level 98 mEQ/L (98-107) 102 mEQ/L (98-107) Carbon Dioxide Level 24 mEQ/L (20-30) 27 mEQ/L (20-30) Anion Gap 15 (5-15) 13 (5-15) Blood Urea Nitrogen 11 mg/dL (7-23) 10 mg/dL (7-23) Creatinine 0.8 mg/dL (0.5-0.9) 0.7 mg/dL (0.5-0.9) Estimat Glomerular Filtration Rate > 60 mL/min (>60) > 60 mL/min (>60) Glucose Level 95 mg/dL (74-106) 91 mg/dL (74-106) Calcium Level 8.8 mg/dL (8.6-10.2) 8.7 mg/dL (8.6-10.2) Total Bilirubin < 0.2 mg/dL (0.0-1.2) < 0.2 mg/dL (0.0-1.2) Aspartate Amino Transf (AST/SGOT) 17 U/L (5-40) 15 U/L (5-40) Alanine Aminotransferase (ALT/SGPT) 14 U/L (3-33) 13 U/L (3-33) Alkaline Phosphatase 55 U/L (35-104) 53 U/L (35-104) Total Protein 7.3 g/dL (6.6-8.7) 6.7 g/dL (6.6-8.7) Albumin 3.9 g/dL (3.5-5.2) 3.7 g/dL (3.5-5.2) Globulin 3.4 g/dL 3.0 g/dL Albumin/Globulin Ratio 1.1 (1.0-2.7) 1.2 (1.0-2.7) Amylase Level 80 U/L (10-110) Lipase 45 U/L (< 60) Carcinoembryonic Antigen 0.6 ng/mL CA 125 Antigen Pending Studies Pre-op Studies: EKG - sr Risk Assessment & Plan Assessment: ASA II Plan: MAC Status Change Before Surgery: No Pre-Antibiotics Drug: N/A JEAN CLAUDE TAYLOR M.D. Jun 05, 2016 10:49
[2016-06-05] MEDS ORDERED: LR 1000ml 1,000 ML IVLG SCH ×2 (10:53→11:39)
[2016-06-05] MEDS ORDERED: Labetalol 5mg/ml 20ml vial IV PRN ×2 (11:00→11:45)
[2016-06-05] MEDS ORDERED: DiphenhydrAMINE 50mg/ml Inj IVP PRN ×2 (11:00→11:45)
--- NOTE | 2016-06-05 11:39 | 48 Hour Post Anesthesia Eval ---
Post Anesthesia Evaluation Procedure: EGD Date of Evaluation: Jun 05, 2016 Blood Pressure Systolic: 131 0: 72 Pulse Rate: 89 Respiratory Rate: 16 O2 Sat by Pulse Oximetry: 100 Airway: patent Nausea: No Vomiting: No Pain Intensity: 0 Hydration Status: adequate Cardiopulmonary Status: at baseline Mental Status/LOC: patient returned to baseline Post-Anesthesia Complications: 0 Follow-up care needed: N/A - further care as per primary team JEAN CLAUDE TAYOLR M.D. Jun 05, 2016 11:39
--- NOTE | 2016-06-05 11:39 | Immediate Post-Op Evaluation ---
Immediate Post-Op Evalulation Immediate Post-Op Evalulation Procedure: EGD Date of Evaluation: Jun 05, 2016 Time of Evaluation: 12:39 IV Fluids: 300 Blood Products: 0 Estimated Blood Loss: 0 Urinary Output: 0 Blood Pressure Systolic: 134 Blood Pressure Diastolic: 69 Pulse Rate: 83 Respiratory Rate: 16 O2 Sat by Pulse Oximetry: 100 Temperature (Fahrenheit): 97.3 Pain Score (1-10): 0 Nausea: No Vomiting: No Complications 0 Patient Status: awake, reacts, patent, none Hydration Status: adequate Drug: N/A JEAN CLAUDE TAYLOR M.D. Jun 05, 2016 11:39
[2016-06-05] MEDS ORDERED: Propofol 10mg/ml 20ml IV ONE (12:00)
[2016-06-05] MEDS ORDERED: Lidocaine 1% MPF 10mg/ml 5ml ONE (12:00)
[2016-06-05] MEDS ORDERED: NS 550ML IV ONE (12:10)
--- NOTE | 2016-06-05 12:10 | Pre-Procedure Note/Attestation ---
Pre-Procedure Note/Attestation Complete Prior to Procedure Planned Procedure: not applicable Procedure Narrative: egd/colon Indications for Procedure Pre-Operative Diagnosis: gib Attestation I attest that I discussed the nature of the procedure; its benefits; risks and complications; and alternatives (and the risks and benefits of such alternatives ), prior to the procedure, with the patient (or the patient's legal fraud representative). I attest that, if there was a reasonable possibility of needing a blood transfusion, the patient (or the patient's legal fraud representative) was given the [facility] standardized written summary, pursuant to the [place] Blood Safety Act ([place] Health and Safety Code # 1645, as amended). I attest that I re-evaluated the patient just prior to the surgery and that there has been no change in the patient's H&P, except as documented below: LILIAM QUARLES Jun 05, 2016 12:09
--- NOTE | 2016-06-05 12:32 | Endoscopy Procedure Note ---
Endoscopy Procedure Note Indication for Procedure: anemia, gib Procedures Performed: EGD, colonoscopy Operative Findings/Diagnosis: gastritis Specimen: yes Pt Tolerated Procedure Well: Yes Estimated Blood Loss: none Anesthesiologist: yanick Anesthesia: MAC Implant(s) used?: No 50 yrs or older w/o bx or poly: Not Applicable 10yrs. F/U not recommended: Not Applicable LILIAM QUARLES Jun 05, 2016 12:32
--- NOTE | 2016-06-05 15:39 | Pulmonology Progress Note ---
Assessment/Plan Problems: (1) pelvic pain (2) Gastroptosis (3) fibroid uterus (4) Gastrointestinal bleeding Assessment/Plan gi f/u check h/h Subjective ROS Limited/Unobtainable: No Interval Events: no new complains Allergies: Coded Allergies: ASPIRIN (Verified Allergy, Severe, Anaphylaxis, 07/02/12) KETOROLAC TROMETHAMINE (Verified Allergy, Severe, Anaphylaxis, 07/02/12) SHELLFISH DERIVED (Verified Allergy, Severe, Anaphylaxis, 07/02/12) CRANBERRY (Verified Allergy, Intermediate, Hives, 06/05/16) and vomiting ONION (Verified Allergy, Intermediate, hives, 06/05/16) vomiting, throat closes up PENICILLINS (Verified Allergy, Intermediate, hives, vomiting, closing of throat, 06/05/16) IBUPROFEN (Verified Allergy, Unknown, 11/11/15) IODINE AND IODIDE CONTAINING PRODUC (Verified Allergy, Unknown, 06/02/16) Objective Last 24 Hour Vital Signs Date Time Temp Pulse Resp B/P Pulse Ox O2 Delivery O2 Flow Rate FiO2 06/05/16 14:07 97.6 06/05/16 14:00 98.0 81 20 146/79 98 Room Air 06/05/16 13:10 97.6 89 19 138/73 100 Room Air 06/05/16 13:00 98 22 133/92 98 Room Air 06/05/16 12:50 79 18 132/79 100 Room Air 06/05/16 12:45 78 20 140/78 100 Room Air 06/05/16 12:40 77 19 134/68 100 Room Air 06/05/16 12:38 89 16 100 06/05/16 12:34 97.3 83 21 151/69 100 Room Air Intake and Output 06/04/16 06/05/16 19:00 07:00 Intake Total 975 ml 1065 ml Balance 975 ml 1065 ml Intake Oral 240 ml IV Total 975 ml 825 ml # Voids 2 3 General Appearance: WD/WN HEENT: normocephalic, atraumatic Respiratory/Chest: chest wall non-tender, lungs clear Cardiovascular: normal peripheral pulses, normal rate Abdomen: soft, non tender Genitourinary: normal external genitalia Skin: no rash Laboratory Tests 06/05/16 06:00: White Blood Count 4.7L, Red Blood Count 3.79L, Hemoglobin 10.0L, Hematocrit 31.6L, Mean Corpuscular Volume 83, Mean Corpuscular Hemoglobin 26.4L, Mean Corpuscular Hemoglobin Concent 31.7L, Red Cell Distribution Width 16.9H, Platelet Count 245, Mean Platelet Volume 6.5, Neutrophils (%) (Auto) 50.3, Lymphocytes (%) (Auto) 38.1, Monocytes (%) (Auto) 7.2, Eosinophils (%) (Auto) 3.6H, Basophils (%) (Auto) 0.8, Sodium Level 142, Potassium Level 3.8, Chloride Level 102, Carbon Dioxide Level 27, Anion Gap 13, Blood Urea Nitrogen 10, Creatinine 0.7, Estimat Glomerular Filtration Rate > 60, Glucose Level 91, Calcium Level 8.7, Total Bilirubin < 0.2, Aspartate Amino Transf (AST/SGOT) 15, Alanine Aminotransferase (ALT/SGPT) 13, Alkaline Phosphatase 53, Total Protein 6.7, Albumin 3.7, Globulin 3.0, Albumin/Globulin Ratio 1.2 Current Medications Medications (Trade) Dose Ordered Sig/Malcolm Route PRN Reason Start Time Stop Time Status Last Admin Dose Admin Acetaminophen (Tylenol) 650 mg Q4H PRN ORAL fever 06/03/16 07:30 07/03/16 07:29 Acetaminophen (Tylenol) 650 mg Q4H PRN ORAL Mild Pain (Pain Scale 1-3) 06/05/16 11:45 06/05/16 18:00 Al Hydroxide/Mg Hydroxide (Mylanta II) 30 ml Q6H PRN ORAL dyspepsia 06/03/16 07:30 07/03/16 07:29 Dextrose (Dextrose 50%) STAT PRN IV Hypoglycemia 06/03/16 07:30 07/03/16 07:29 Dextrose/Sodium Chloride (D5 0.45% NS) 1,000 ml @ 75 mls/hr [id number] IV 06/03/16 08:00 07/03/16 07:59 06/05/16 13:41 Diphenhydramine HCl (Benadryl) 25 mg Q6H PRN ORAL Itching/Pruritis 06/03/16 07:30 07/03/16 07:29 Diphenhydramine HCl 25 mg 25 mg Q15M PRN IVP Itching 06/05/16 11:45 06/05/16 18:00 06/05/16 13:00 Hydralazine HCl (Apresoline) 5 mg Q30M PRN IV SBP>160 /DBP>90 06/05/16 11:45 06/05/16 18:00 Hydromorphone HCl (Dilaudid) 2 mg Q3H PRN IVP Severe Pain (Pain Scale 7-10) 06/03/16 10:15 06/10/16 10:14 06/05/16 13:37 Labetalol HCl (Normodyne) 5 mg Q10M PRN IV SBP>160 / DBP>90 06/05/16 11:45 06/05/16 18:00 Lactated Ringer's (Lactated Ringer's 1000ml) 1,000 ml @ 10 mls/hr Q24H IVLG 06/05/16 11:39 06/05/16 18:00 Lorazepam (Ativan) 1 mg Q6H PRN ORAL For Anxiety 06/04/16 09:15 06/11/16 09:14 06/04/16 09:29 Nitroglycerin (Ntg) 0.4 mg Q5M X 3 DOSES PRN SL Prn Chest Pain 06/03/16 07:30 07/03/16 07:29 Ondansetron HCl (Zofran) 4 mg Q1H PRN IVP Nausea & Vomiting 06/05/16 11:45 06/05/16 18:00 Ondansetron HCl (Zofran) 4 mg Q6H PRN IVP Nausea & Vomiting 06/03/16 07:30 07/03/16 07:29 06/04/16 17:39 Pantoprazole (Protonix) 40 mg EVERY 12 HOURS IVP 06/03/16 13:30 07/03/16 13:29 06/05/16 09:09 Polyethylene Glycol (Miralax) 17 gm HSPRN PRN ORAL Constipation 06/03/16 07:30 07/03/16 07:29 Temazepam (Restoril) 15 mg HSPRN PRN ORAL Insomnia 06/03/16 07:30 06/10/16 07:29 06/04/16 03:00 AAYUSH AGUILAR Jun 05, 2016 15:39
[2016-06-05] MEDS ORDERED: D5 1/2NS 1000ml IV ONE (18:57)
--- NOTE | 2016-06-05 22:38 | Procedure Note ---
DATE OF PROCEDURE: 06/05/2016 SURGEON: Fernando Gaitan M.D. PROCEDURE: Upper endoscopy with biopsy and colonoscopy. ANESTHESIOLOGIST: Dr. Bedoya. INSTRUMENT: Olympus adult flexible upper endoscope and colonoscope. INDICATION: Anemia and gastrointestinal bleeding. REASON FOR PROCEDURE: The procedure, risks, benefits, and possible consequences, including hemorrhage, aspiration, perforation and infection, and alternative treatments, were explained to the patient/legal guardian by Dr. Fernando Gaitan and the patient/legal guardian understood and accepted these risks. DESCRIPTION OF PROCEDURE: After informed consent was obtained and the patient was adequately sedated, Olympus upper endoscope was advanced from mouth into the second portion of the duodenum and retroflexion was performed in the stomach. The patient had diffuse gastritis. Random biopsy from antrum was obtained to rule out H. pylori infection. Otherwise, normal upper endoscopic examination. At this time, the upper endoscope was retrieved and the patient was turned over colonoscopy. First, a rectal exam was performed, which was positive for internal hemorrhoids. Then, the scope was advanced from the rectum into the cecum, documented with appendiceal orifice. Quality of prep was very poor. This examination was very limited. The stool was covering throughout the colon, so we cannot rule out any pathology at this time. There is no obvious bleeding. No obvious large mass or diverticula was seen. Retroflexion of rectum showed evidence of internal hemorrhoids. SUMMARY OF FINDINGS: 1. Gastritis, status post biopsy. 2. Poor and incomplete colonoscopy examination. 3. Internal hemorrhoids. RECOMMENDATIONS: Given the patient has no obvious GI bleeding at this time, we recommend discharge and follow as an outpatient. I want to thank, Dr. Farris, for this kind referral. Fernando Gaitan M.D. DR: ARIADNA JOB#: [id number] CC: Marquita Farris M.D.
[2016-06-06] VITALS: BP 115/77
[2016-06-06] MEDS: D5 1/2NS 1,000 ML IV SCH (02:12)
[2016-06-06 04:00] VITALS: BP_SYST 113; BP_SYST 133; BP_DIAS 77; BP_DIAS 82
[2016-06-06] MEDS: LORazepam 1mg tab ORAL PRN (04:08)
[2016-06-06 08:00] VITALS: BP 143/74
[2016-06-06] MEDS: Pantoprazole Inj IVP SCH (08:57)
--- NOTE | 2016-06-06 11:36 | Cardiology Report ---
APPROVED REPORT EKG Measurement Heart [id number] Normal sinus rhythm Normal ECG
[2016-06-06 12:00] VITALS: BP 125/73
--- NOTE | 2016-06-06 12:11 | General Progress Note ---
Assessment/Plan Problem List: (1) Gastrointestinal bleeding ICD Codes: K92.2 - Gastrointestinal hemorrhage, unspecified SNOMED: 76001044 Qualifiers: Qualified Codes: K92.2 - Gastrointestinal hemorrhage, unspecified (2) Opioid dependence ICD Codes: F11.20 - Opioid dependence, uncomplicated SNOMED: 47922748 (3) GERD (gastroesophageal reflux disease) ICD Codes: K21.9 - GERD (gastroesophageal reflux disease) SNOMED: 920460581 (4) fibroid uterus (5) Abdominal pain ICD Codes: R10.9 - Unspecified abdominal pain SNOMED: 33989093 Assessment/Plan s/p EGD and colonoscopy ok to dc GI stand point Subjective ROS Limited/Unobtainable: Yes Allergies: Coded Allergies: ASPIRIN (Verified Allergy, Severe, Anaphylaxis, 07/02/12) KETOROLAC TROMETHAMINE (Verified Allergy, Severe, Anaphylaxis, 07/02/12) SHELLFISH DERIVED (Verified Allergy, Severe, Anaphylaxis, 07/02/12) CRANBERRY (Verified Allergy, Intermediate, Hives, 06/05/16) and vomiting ONION (Verified Allergy, Intermediate, hives, 06/05/16) vomiting, throat closes up PENICILLINS (Verified Allergy, Intermediate, hives, vomiting, closing of throat, 06/05/16) IBUPROFEN (Verified Allergy, Unknown, 11/11/15) IODINE AND IODIDE CONTAINING PRODUC (Verified Allergy, Unknown, 06/02/16) Subjective c/o abd pain Objective Last 24 Hour Vital Signs Date Time Temp Pulse Resp B/P Pulse Ox O2 Delivery O2 Flow Rate FiO2 06/06/16 11:35 97.5 06/06/16 08:00 97.0 84 18 143/74 99 Room Air 06/06/16 04:00 97.5 87 18 113/82 98 Room Air 06/06/16 00:00 97.9 84 18 115/77 98 Room Air 06/05/16 20:00 97.7 82 19 144/76 96 Room Air 06/05/16 16:27 97.7 96 18 134/77 100 Room Air 06/05/16 14:00 98.0 81 20 146/79 98 Room Air 06/05/16 13:10 97.6 89 19 138/73 100 Room Air 06/05/16 13:00 98 22 133/92 98 Room Air 06/05/16 12:50 79 18 132/79 100 Room Air 06/05/16 12:45 78 20 140/78 100 Room Air 06/05/16 12:40 77 19 134/68 100 Room Air 06/05/16 12:38 89 16 100 06/05/16 12:34 97.3 83 21 151/69 100 Room Air Intake and Output 06/05/16 06/06/16 19:00 07:00 Intake Total 1290 ml 1200 ml Output Total 0 ml Balance 1290 ml 1200 ml Intake Oral 240 ml 600 ml IV Total 1050 ml 600 ml Output Estimated Blood Loss 0 ml # Voids 2 5 Height (Feet): 5 Height (Inches): 3.00 Weight (Pounds): 275 General Appearance: alert EENT: normal ENT inspection Neck: supple Cardiovascular: normal rate Respiratory/Chest: decreased breath sounds Abdomen: normal bowel sounds, non tender, soft Extremities: non-tender LILIAM QUARLES Jun 06, 2016 12:11
[2016-06-06] MEDS ORDERED: D5 1/2NS 1000ml IV ONE ×2 (15:29)
--- NOTE | 2016-06-06 15:50 | Pulmonology Progress Note ---
Assessment/Plan Problems: (1) Gastrointestinal bleeding (2) fibroid uterus (3) GERD (gastroesophageal reflux disease) (4) Opioid dependence (5) pelvic pain (6) Gastroptosis Assessment/Plan egd negative h/h stable dc home today Subjective ROS Limited/Unobtainable: No Allergies: Coded Allergies: ASPIRIN (Verified Allergy, Severe, Anaphylaxis, 07/02/12) KETOROLAC TROMETHAMINE (Verified Allergy, Severe, Anaphylaxis, 07/02/12) SHELLFISH DERIVED (Verified Allergy, Severe, Anaphylaxis, 07/02/12) CRANBERRY (Verified Allergy, Intermediate, Hives, 06/05/16) and vomiting ONION (Verified Allergy, Intermediate, hives, 06/05/16) vomiting, throat closes up PENICILLINS (Verified Allergy, Intermediate, hives, vomiting, closing of throat, 06/05/16) IBUPROFEN (Verified Allergy, Unknown, 11/11/15) IODINE AND IODIDE CONTAINING PRODUC (Verified Allergy, Unknown, 06/02/16) Objective Last 24 Hour Vital Signs Date Time Temp Pulse Resp B/P Pulse Ox O2 Delivery O2 Flow Rate FiO2 06/06/16 14:39 97.7 06/06/16 12:00 97.7 78 20 125/73 99 Room Air 06/06/16 08:00 97.0 84 18 143/74 99 Room Air 06/06/16 04:00 97.5 87 18 113/82 98 Room Air 06/06/16 00:00 97.9 84 18 115/77 98 Room Air 06/05/16 20:00 97.7 82 19 144/76 96 Room Air 06/05/16 16:27 97.7 96 18 134/77 100 Room Air Intake and Output 06/05/16 06/06/16 19:00 07:00 Intake Total 1290 ml 1200 ml Output Total 0 ml Balance 1290 ml 1200 ml Intake Oral 240 ml 600 ml IV Total 1050 ml 600 ml Output Estimated Blood Loss 0 ml # Voids 2 5 General Appearance: WD/WN HEENT: normocephalic Respiratory/Chest: lungs clear Cardiovascular: normal rate Abdomen: normal bowel sounds Extremities: no cyanosis Skin: no rash Current Medications Medications (Trade) Dose Ordered Sig/Malcolm Route PRN Reason Start Time Stop Time Status Last Admin Dose Admin Acetaminophen (Tylenol) 650 mg Q4H PRN ORAL fever 06/03/16 07:30 07/03/16 07:29 Al Hydroxide/Mg Hydroxide (Mylanta II) 30 ml Q6H PRN ORAL dyspepsia 06/03/16 07:30 07/03/16 07:29 Dextrose (Dextrose 50%) STAT PRN IV Hypoglycemia 06/03/16 07:30 07/03/16 07:29 Dextrose/Sodium Chloride (D5 0.45% NS) 1,000 ml @ 75 mls/hr [id number] IV 06/03/16 08:00 07/03/16 07:59 06/06/16 02:12 Diphenhydramine HCl (Benadryl) 25 mg Q6H PRN ORAL Itching/Pruritis 06/03/16 07:30 07/03/16 07:29 Hydromorphone HCl (Dilaudid) 2 mg Q3H PRN IVP Severe Pain (Pain Scale 7-10) 06/03/16 10:15 06/10/16 10:14 06/06/16 14:09 Lorazepam (Ativan) 1 mg Q6H PRN ORAL For Anxiety 06/04/16 09:15 06/11/16 09:14 06/06/16 04:08 Nitroglycerin (Ntg) 0.4 mg Q5M X 3 DOSES PRN SL Prn Chest Pain 06/03/16 07:30 07/03/16 07:29 Ondansetron HCl (Zofran) 4 mg Q6H PRN IVP Nausea & Vomiting 06/03/16 07:30 07/03/16 07:29 06/06/16 11:05 Pantoprazole (Protonix) 40 mg EVERY 12 HOURS IVP 06/03/16 13:30 07/03/16 13:29 06/06/16 08:57 Polyethylene Glycol (Miralax) 17 gm HSPRN PRN ORAL Constipation 06/03/16 07:30 07/03/16 07:29 Temazepam (Restoril) 15 mg HSPRN PRN ORAL Insomnia 06/03/16 07:30 06/10/16 07:29 06/04/16 03:00 AAYUSH AGUILAR Jun 06, 2016 15:50
--- NOTE | 2016-06-06 23:24 | Diagnostic Imaging Report ---
APPROVED REPORT CPT Code: 79365 Present Symptoms Comments: Pain BILATERAL: Imaging reveals a patent deep venous system bilaterally. There is no evidence of thrombus within the femoral, popliteal or tibial segments. The greater saphenous veins are also within normal limits. Doppler indicates normal spontaneous flow within these segments.
--- NOTE | 2016-06-07 20:00 | Discharge Summary ---
Discharge Summary Hospital Course Date of Admission Jun 02, 2016 at 22:33 Date of Discharge Jun 06, 2016 at 15:30 Admitting Diagnosis GI BLEED HPI Laura Rosas is a 40 year old female who was admitted on Jun 02, 2016 at 22 :33 for Gi Bleed Hospital Course [id number] Discharge Discharge Disposition Patient was discharged to Home (01) Discharge Diagnoses: Patricia Espinosa NP Jun 07, 2016 20:00
--- NOTE | 2016-06-08 02:08 | Discharge Summary 2 SIG ---
DATE OF ADMISSION: 06/02/2016 DATE OF DISCHARGE: 06/06/2016 ACOUSTICAL MATERIAL WORKER: Fernando Gaitan M.D. BRIEF HOSPITAL COURSE: The patient is a 40-year-old female, who presented to ED complaining of vomiting blood and also passed blood per rectum, which was dark red and brown with accompanying left lower quadrant pain. She was hospitalized in [place] few weeks ago and received blood transfusion for fibroid bleed. CT of the abdomen and pelvis done at ED revealed no acute abdominopelvic pathology, but consistent with fibroids and right-sided ovarian cyst. She has a strong family history of cancer, father with colorectal CA and mother with ovarian CA. She was admitted to medical floor and was placed on IV hydration and proton pump inhibitors. Dr. Gaitan was consulted. On 06/05/2016, the patient underwent esophagogastroduodenoscopy and colonoscopy with findings of gastritis. The pathology results showed mild chronic oxyntic gastritis with no H. pylori. No intestinal metaplasia or dysplasia. Colonoscopy showed poor prep. Examination was limited, however, there was no obvious bleed and no obvious large mass or diverticula seen. Retroflexion of the rectum showed evidence of internal hemorrhoids. The patient did not have any obvious gastrointestinal bleed. Hemoglobin and hematocrit have been stable. Diet was eventually advanced and has been tolerating diet. The patient was advised need to follow up with PMD as outpatient and the patient was eventually discharged home advised to continue proton pump inhibitors. FINAL DIAGNOSES: 1. Gastrointestinal bleed. 2. Uterine fibroids. 3. Ovarian cyst. 4. Morbid obesity. 5. Opiate dependency. 6. Gastritis/gastroesophageal reflux disease. 7. Pelvic pain. 8. Status post esophagogastroduodenoscopy and incomplete colonoscopy secondary to poor bowel prep. Marquita Farris M.D. I have been assigned to dictate discharge summary on this account and I was not involved in the patient's management. Patricia Espinosa N.P. DR: SANA JOB#: [id number] CC: REI
== END 2016-06-06 15:30 | disposition home or self-care (01) | DRG 253 ==
LOC: EMR 22:07 → 4W 22:33 → EDBEDREQ 06-03 02:13 → 3E 06-04 04:00
DX: K92.2 Gastrointestinal hemorrhage, unspecified (principal); F11.20 Opioid dependence, uncomplicated; Z68.42 Body mass index [BMI] 45.0-49.9, adult; N83.209 Unspecified ovarian cyst, unspecified side; E66.01 Morbid (severe) obesity due to excess calories; D64.9 Anemia, unspecified; K64.8 Other hemorrhoids; K29.70 Gastritis, unspecified, without bleeding; K21.9 Gastro-esophageal reflux disease without esophagitis; D25.9 Leiomyoma of uterus, unspecified
CPT/HCPCS: 36415; 71010; 74000; 80053; 81003; 81025; 82150; 82270; 82378; 83690; 85025; 85610; 85730; 86304; 86850; 86900; 86901; 93005; 93970; 94003; 94150; J2405

== ENCOUNTER 2016-08-05 19:53 | Emergency (ER) | payer OTHER ==
[~2016-08-05] VITALS: Ht 160 cm; Wt 79.4 kg
[2016-08-05 20:55] VITALS: BP 125/75
[2016-08-05] MEDS ORDERED: Acetaminophen 500mg (ES) tab ORAL ONE (21:00)
--- NOTE | 2016-08-05 21:01 | Emergency Room Report ---
History of Present Illness General Chief Complaint: Abdominal Pain Source: Patient, Medical Record Present Illness HPI Is a 40-year-old female with history of fibroids. She presents with chief complaint of abdominal pain/pelvic pain is been ongoing for months. She was here in May with CT scan showing this fibroids. She also had some issue with GI bleeding and endoscopy showed gastritis. Colonoscopy showed internal hemorrhoids but no active bleeding. Since then she claimed she went to her primary care DrLuis Enrique had a CT scan which of kidney stone. She hasn't seen anybody since then. Pain is 10 out of 10. No fever chills but no nausea no vomiting. No diarrhea. She said she has not seen anybody for a month. No urinary complaint. Allergies: Coded Allergies: ASPIRIN (Verified Allergy, Severe, Anaphylaxis, 07/02/12) KETOROLAC TROMETHAMINE (Verified Allergy, Severe, Anaphylaxis, 07/02/12) SHELLFISH DERIVED (Verified Allergy, Severe, Anaphylaxis, 07/02/12) CRANBERRY (Verified Allergy, Intermediate, Hives, 06/05/16) and vomiting ONION (Verified Allergy, Intermediate, hives, 06/05/16) vomiting, throat closes up PENICILLINS (Verified Allergy, Intermediate, hives, vomiting, closing of throat, 06/05/16) IBUPROFEN (Verified Allergy, Unknown, 11/11/15) IODINE AND IODIDE CONTAINING PRODUC (Verified Allergy, Unknown, 06/02/16) Patient History Past Medical History: see triage record, old chart reviewed Past Surgical History: other Social History: Denies: smoking Last Menstrual Period: 2 weeks ago Now: No Immunizations: other Reviewed Nursing Documentation: PMH: Agreed, PSxH: Agreed Nursing Documentation-PMH Hx Cardiac Problems: No Hx Cancer: No Hx Gastrointestinal Problems: Yes Hx Neurological Problems: No Hx Dizziness: Yes Hx Headaches: Yes Review of Systems Eye: Denies: blurred vision, eye pain ENT: Denies: ear pain, nose congestion, throat swelling Respiratory: Denies: cough, shortness of breath Cardiovascular: Denies: chest pain, palpitations Gastrointestinal: Reports: abdominal pain, Denies: diarrhea, nausea, vomiting Musculoskeletal: Denies: back pain, joint pain Skin: Denies: rash Neurological: Denies: headache, numbness Endocrine: Denies: increased thirst, increased urine Hematologic/Lymphatic: Denies: easy bruising All Other Systems: negative except mentioned in HPI Physical Exam Vital Signs Date Time Temp Pulse Resp B/P Pulse Ox O2 Delivery O2 Flow Rate FiO2 08/05/16 20:10 98.8 93 16 125/75 98 Room Air vitals normal Sp02 EP Interpretation: reviewed, normal General Appearance: well appearing, no apparent distress, alert Head: normocephalic, atraumatic Eyes: bilateral eye EOMI, bilateral eye PERRL ENT: hearing grossly normal, normal pharynx Neck: full range of motion, supple, no meningismus Respiratory: chest non-tender, lungs clear, normal breath sounds Cardiovascular #1: regular rate, rhythm, no murmur Gastrointestinal: normal bowel sounds, no mass, no organomegaly, no bruit, non- distended, tenderness - Lower quadrant tenderness Musculoskeletal: back normal, gait/station normal, normal range of motion Psychiatric: mood/affect normal Skin: warm/dry Medical Decision Making Diagnostic Impression: Primary Impression: Abdominal pain Qualified Codes: R10.84 - Generalized abdominal pain Additional Impressions: Opioid dependence Qualified Codes: F11.20 - Opioid dependence, uncomplicated Drug-seeking behavior ER Course Patient with abdominal pain. This is a chronic issue. She's a strong drug- seeking behavior. On the [employer] system, she had Demerol prescribe on July 31, get on the prescribe on 07/15, 07/13. Head lorazepam prescribe . In fact, she had multiple prescriptions from different doctors. She wanted a full workup including CT scan and ultrasound. She wanted narcotic also. I explained to the patient that she just had multiple CT scan done. There is no change in her condition she'll there no need for another CT scan. I see no evidence of acute abdomen or obstruction. She said that she has an appointment to see [facility] for hysterectomy. Patient signed out AGAINST MEDICAL ADVICE. She is competent to make that decision. Last Vital Signs Date Time Temp Pulse Resp B/P Pulse Ox O2 Delivery O2 Flow Rate FiO2 08/05/16 20:10 98.8 93 16 125/75 98 Room Air Status: unchanged Disposition: AGAINST MEDICAL ADVICE JESS PORRAS M.D. August 05, 2016 21:01
[2016-08-05 21:09] LABS: APPEARANCE,URINE CLEAR; KETONES,URINE NEGATIVE (NEGATIVE); LEUKOCYTE ESTERASE ,URINE NEGATIVE (NEGATIVE); NITRITE,URINE NEGATIVE (NEGATIVE); PH,URINE 6.5 (4.5-8.0); PROTEIN,URINE NEGATIVE (NEGATIVE); UROBILINOGEN,URINE NORMAL MG/DL (0.0-1.0)
== END 2016-08-05 21:35 | disposition left against medical advice (07) ==
LOC: EMR 21:33
DX: R10.84 Generalized abdominal pain (principal); F11.20 Opioid dependence, uncomplicated; Z76.5 Malingerer [conscious simulation]; Z88.6 Allergy status to analgesic agent; Z88.0 Allergy status to penicillin; Z91.013 Allergy to seafood; Z91.041 Radiographic dye allergy status; Z91.018 Allergy to other foods
CPT/HCPCS: 80300; 81003; 81025; 99282

== ENCOUNTER 2017-03-13 17:51 | Emergency (ER) | payer OTHER ==
[~2017-03-13] VITALS: Ht 160 cm; Wt 124.7 kg
[2017-03-13] MEDS ORDERED: Lidocaine 2% Visc 15ml soln ORAL ONE (19:30)
[2017-03-13] MEDS ORDERED: Dicyclomine HCl 10mg/5ml oral soln ORAL ONE (19:30)
[2017-03-13] MEDS ORDERED: Morphine Sulfate 4mg/ml Inj IM ONE (19:30)
[2017-03-13] MEDS ORDERED: Mylanta II UD 30ml ORAL ONE (19:30)
[2017-03-13 19:53] LABS: BASOPHILS % (AUTO) 0.9 % (0.0-2.0); EOSINOPHILS % (AUTO) 0.9 % (0.0-3.0); LYMPHOCYTES % (AUTO) 26.5 % (20.0-45.0); MEAN CORPUSCULAR HEMOGLOBIN 24.3 PG (27.0-31.0); MEAN CORPUSCULAR VOLUME 81 FL (80-99); MEAN PLATELET VOLUME 5.7 FL (6.5-10.1); MONOCYTES % (AUTO) 4.6 % (1.0-10.0); NEUTROPHILS % (AUTO) 67.2 % (45.0-75.0); PLATELET COUNT 443 K/UL (150-450); RED BLOOD COUNT 4.11 M/UL (4.20-5.40); RED CELL DISTRIBUTION WIDTH 16.1 % (11.6-14.8); WHITE BLOOD COUNT 8.1 K/UL (4.8-10.8)
[2017-03-13 19:59] LABS: ANION GAP 10 mmol/L (5-15); CALCIUM 8.3 MG/DL (8.5-10.1); CARBON DIOXIDE 24 MMOL/L (21-32); CHLORIDE 104 MMOL/L (98-107); CREATININE 0.9 MG/DL (0.55-1.30); GLOMERULAR FILTRATION RATE > 60 mL/min (>60); POTASSIUM 3.8 MMOL/L (3.5-5.1); SODIUM 138 MMOL/L (136-145)
[2017-03-13] MEDS ORDERED: PEPCID40 MG PO (20:10)
[2017-03-13] MEDS ORDERED: ACETAMINOPHEN-1 EAC1 ORAL (20:10)
[2017-03-13] MEDS ORDERED: MAALOX ADVANCE770 ML PO (20:10)
[2017-03-13 20:25] VITALS: BP 143/92
--- NOTE | 2017-03-13 21:25 | Emergency Room Report ---
History of Present Illness General Chief Complaint: Abdominal Pain Source: Patient Present Illness HPI Patient presents with reports of vomiting and diarrhea she also reports evidence of blood in the vomit Patient reports that she was in the hospital recently Had a PICC line in place She left AGAINST MEDICAL ADVICE and was home for several days and presents for further epigastric discomfort Denies any fevers denies any chest pain or shortness of breath Abdominal pain is 5/10 and diffuse Allergies: Coded Allergies: ASPIRIN (Verified Allergy, Severe, Anaphylaxis, 07/02/12) KETOROLAC TROMETHAMINE (Verified Allergy, Severe, Anaphylaxis, 07/02/12) SHELLFISH DERIVED (Verified Allergy, Severe, Anaphylaxis, 07/02/12) CRANBERRY (Verified Allergy, Intermediate, Hives, 06/05/16) and vomiting ONION (Verified Allergy, Intermediate, hives, 06/05/16) vomiting, throat closes up PENICILLINS (Verified Allergy, Intermediate, hives, vomiting, closing of throat, 06/05/16) IBUPROFEN (Verified Allergy, Unknown, 11/11/15) IODINE AND IODIDE CONTAINING PRODUC (Verified Allergy, Unknown, 06/02/16) Patient History Past Medical History: see triage record Pertinent Family History: none Last Menstrual Period: Three months ago - tubal ligation Now: No Reviewed Nursing Documentation: PMH: Agreed, PSxH: Agreed Nursing Documentation-PMH Hx Cancer: No Hx Gastrointestinal Problems: Yes Hx Neurological Problems: No Hx Dizziness: Yes Hx Headaches: Yes Review of Systems All Other Systems: negative except mentioned in HPI Physical Exam Vital Signs Date Time Temp Pulse Resp B/P (MAP) Pulse Ox O2 Delivery O2 Flow Rate FiO2 03/13/17 17:58 98.8 90 18 143/92 99 Room Air Sp02 EP Interpretation: reviewed, normal General Appearance: well appearing, no apparent distress Head: normocephalic, atraumatic Eyes: bilateral eye PERRL, bilateral eye EOMI ENT: hearing grossly normal, normal pharynx, TMs + canals normal, uvula midline Neck: full range of motion, supple, no meningismus, no bony tend Respiratory: lungs clear, normal breath sounds, no rhonchi, no respiratory distress, no retraction, no accessory muscle use Cardiovascular #1: normal peripheral pulses, regular rate, rhythm, no edema, no gallop, no JVD, no murmur Gastrointestinal: normal bowel sounds, non tender - On palpation however subjectively epigastric region is where she points, soft, no mass, no organomegaly, non-distended, no guarding, no hernia, no pulsatile mass, no rebound Genitourinary: no CVA tenderness Musculoskeletal: normal inspection Neurologic: oriented x3, responsive, metalsmith helper III-XII nml as tested, motor strength/ tone normal, sensory intact Psychiatric: mood/affect normal Skin: normal color, no rash, warm/dry, palpation normal Lymphatic: normal inspection, no adenopathy Medical Decision Making Diagnostic Impression: Primary Impression: vomiting ER Course With the history exam and presentation, multiple differentials considered, including but not limited to appendicitis, gastritis, cholecystitis, diverticulitis With complaints of blood in the vomit, upper GI bleed is also entertained Patient however remains hemodynamically stable Benign clinical exam Blood work is also at baseline levels Patient stable for close followup Labs Test 03/13/17 19:30 White Blood Count 8.1 K/UL (4.8-10.8) Red Blood Count 4.11 M/UL (4.20-5.40) Hemoglobin 10.0 G/DL (12.0-16.0) Hematocrit 33.3 % (37.0-47.0) Mean Corpuscular Volume 81 FL (80-99) Mean Corpuscular Hemoglobin 24.3 PG (27.0-31.0) Mean Corpuscular Hemoglobin Concent 30.0 G/DL (32.0-36.0) Red Cell Distribution Width 16.1 % (11.6-14.8) Platelet Count 443 K/UL (150-450) Mean Platelet Volume 5.7 FL (6.5-10.1) Neutrophils (%) (Auto) 67.2 % (45.0-75.0) Lymphocytes (%) (Auto) 26.5 % (20.0-45.0) Monocytes (%) (Auto) 4.6 % (1.0-10.0) Eosinophils (%) (Auto) 0.9 % (0.0-3.0) Basophils (%) (Auto) 0.9 % (0.0-2.0) Sodium Level 138 MMOL/L (136-145) Potassium Level 3.8 MMOL/L (3.5-5.1) Chloride Level 104 MMOL/L (98-107) Carbon Dioxide Level 24 MMOL/L (21-32) Anion Gap 10 mmol/L (5-15) Blood Urea Nitrogen 14 mg/dL (7-18) Creatinine 0.9 MG/DL (0.55-1.30) Estimat Glomerular Filtration Rate > 60 mL/min (>60) Glucose Level 105 MG/DL (74-106) Calcium Level 8.3 MG/DL (8.5-10.1) Last Vital Signs Date Time Temp Pulse Resp B/P (MAP) Pulse Ox O2 Delivery O2 Flow Rate FiO2 03/13/17 20:25 98.8 18 143/92 99 Room Air 03/13/17 17:58 90 Status: improved Disposition: HOME, SELF-CARE Condition: Improved Scripts Acetaminophen With Codeine (T#3) (TYLENOL #3 TAB*) Y Tab 1 TAB ORAL Q8H Y for For Pain, #10 TAB Prov: DONATO ADNERSON D.O. 03/13/17 Mag Hydrox/Al Hydrox/Simeth (Maalox Advanced Suspension) 355 Ml Oral.susp 10 ML PO TID for 7 Days, ML Prov: DONATO ANDERSON D.O. 03/13/17 Famotidine (PEPCID) 40 Mg Tablet 40 MG PO DAILY, #7 TAB 0 Refills Prov: DONATO ANDERSON D.O. 03/13/17 Referrals: [facility],REFERRING (PCP) Patient Instructions: Abdominal Pain, Adult Additional Instructions: Patient is provided with the discharge instructions notified to follow up with primary doctor in the next 2-3 days otherwise return to the er with any worsening symptoms. Please note that this report is being documented using [employer] technology. This can lead to erroneous entry secondary to incorrect interpretation by the dictating instrument. DONATO ANDERSON D.O. Mar 13, 2017 21:25
== END 2017-03-13 20:26 | disposition home or self-care (01) ==
LOC: EMR 18:22
DX: R11.10 Vomiting, unspecified (principal); Z98.51 Tubal ligation status; Z88.0 Allergy status to penicillin; Z88.6 Allergy status to analgesic agent; Z91.041 Radiographic dye allergy status; Z91.018 Allergy to other foods
CPT/HCPCS: 36415; 80048; 85025; 96372; 99284; J2270

== ENCOUNTER 2019-06-06 15:14 | Emergency (ER) | payer OTHER ==
[~2019-06-06] VITALS: Ht 160 cm; Wt 124.7 kg
[~2019-06-06 15:14] MED LIST changes: +ACETAMINOPHEN-1 EAC1 ORAL; +MAALOX ADVANCE770 ML PO; +PEPCID40 MG PO
[2019-06-06 15:42] VITALS: BP 122/74
[2019-06-06] MEDS ORDERED: HYDROcodone/Acetamin 5/325 tab ORAL ONE (16:00)
[2019-06-06] MEDS ORDERED: ROBAXIN-500MG ORAL (16:02)
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
== END 2019-06-06 16:15 | disposition home or self-care (01) ==
LOC: EMR 15:45
DX: S39.012A Strain of muscle, fascia and tendon of lower back, initial encounter (principal); V49.9XXA Car occupant (driver) (passenger) injured in unspecified traffic accident, initial encounter; Y92.411 Interstate highway as the place of occurrence of the external cause; Z88.6 Allergy status to analgesic agent; Z91.013 Allergy to seafood; Z88.8 Allergy status to other drugs, medicaments and biological substances; Z91.018 Allergy to other foods
CPT/HCPCS: 99282